=== PATIENT | female | born 1940 | race Caucasian/White ===

== ENCOUNTER 2018-12-18 11:25 | Day surgery (SDC) | payer MEDICARE, OTHER ==
[~2018-12-18 11:25] MED LIST: Propofol 200 MG/20 ML SDV ONE; Sodium Chloride 0.9% 10 ML Syringe FLUSH PRN
[2018-12-18] MEDS: Lactated Ringers 1,000 ML IV SCH (12:22)
--- NOTE | 2018-12-18 12:31 | PCM.HPR ---
H & P Addendum review - H & P Addendum Review Date of Original H & P: 12/09/18 Date Reviewed: 12/18/18 Time Reviewed: 12:30 Patient was Examined: No Changes
[2018-12-18] MEDS ORDERED: Propofol 200 MG/20 ML SDV ONE (12:40)
[2018-12-18] MEDS ORDERED: Lidocaine 2% 100 MG/5 ML Syringe ONE (12:40)
--- NOTE | 2018-12-18 13:11 | PCM.OPNOTE ---
- General Post-Op/Procedure Note Date of Surgery/Procedure: 12/18/18 Operative Procedure(s): EGD adn Colonoscopy Findings: Normal EGD Sig tics Pre Op Diagnosis: GERD; Hx polyps Post-Op Diagnosis: Same Anesthesia Technique: MAC Primary Surgeon: Eddy Flanagan Anesthesia Provider: Rosa East Complications: None Condition: Good
--- NOTE | 2018-12-19 09:22 | OR ---
Date of Procedure: 12/18/2018 PREOPERATIVE DIAGNOSES: 1. Gastroesophageal reflux disease. 2. History of colon polyps. POSTOPERATIVE DIAGNOSES: 1. Normal esophagogastroduodenoscopy. 2. Sigmoid diverticulosis. PROCEDURES: 1. Esophagogastroduodenoscopy. 2. Colonoscopy. ANESTHESIA: IV sedation. DESCRIPTION OF PROCEDURE: The patient was brought to the procedure room where she was placed on her left side and IV sedation administered. Oral bite block was placed and the upper endoscope advanced into the esophagus under direct vision without difficulty. Vocal cords were viewed and were normal. Scope was advanced to the third portion of the duodenum. Duodenum and pylorus were normal. Antrum and body of the stomach were normal. Retroflexion revealed a normal-appearing fundus. Squamocolumnar junction was normal without any evidence of esophagitis, erosions, ulcerations, or strictures. Air was removed from the stomach and the scope withdrawn through the remaining esophagus, which appeared normal. The patient tolerated this portion of the procedure well. Next, colonoscopy was performed after digital rectal exam was done which was normal. Colonoscope was inserted and advanced to the level of the cecum with difficulty getting through a tortuous sigmoid colon. With pressure on the abdomen, I was able to get through this area and then advanced easily to the level of the cecum which was confirmed by identifying the appendiceal lumen and ileocecal valve. The prep was good and surfaces were well visualized. Upon withdrawing the scope, the ascending, transverse, and descending colon were normal in appearance. Sigmoid colon was tortuous with multiple diverticula present. Rectum was normal and retroflexion was normal. Air was removed and the scope withdrawn. The patient tolerated the procedure well and returned to Recovery in stable condition. No further colon screenings are necessary due to the patient's age. REID VAUGHN MD /[id number]
== END 2018-12-18 14:20 | disposition home or self-care (01) ==
LOC: LL.SDS 11:25
PROVIDERS: ATTEND Surgery
DX: K57.30 Diverticulosis of large intestine without perforation or abscess without bleeding (principal); K21.9 Gastro-esophageal reflux disease without esophagitis; K63.89 Other specified diseases of intestine; I10 Essential (primary) hypertension; E03.9 Hypothyroidism, unspecified; M65.30 Trigger finger, unspecified finger; Z86.010 Personal history of colon polyps; Z88.1 Allergy status to other antibiotic agents; Z79.899 Other long term (current) drug therapy
CPT/HCPCS: J2001; J2704; J7120

== ENCOUNTER 2024-11-07 00:51 | Emergency (ER) | payer MEDICARE, OTHER ==
[2024-11-07 01:14] LABS: BASOPHILS ABSOLUTE AUTO 0.03 K/uL (0.00-0.20); BASOPHILS PERCENT AUTO 0.2 % (0.0-2.0); EOSINOPHILS ABSOLUTE AUTO 0.07 K/uL (0.00-0.50); EOSINOPHILS PERCENT AUTO 0.5 % (0.0-5.0); IMMATURE GRAN ABSOLUTE AUTO 0.05 10^3/uL (0.00-0.04); IMMATURE GRAN PERCENT AUTO 0.3 % (0.0-0.4); LYMPHOCYTES ABSOLUTE AUTO 0.99 K/uL (0.50-3.50); LYMPHOCYTES PERCENT AUTO 6.9 % (10.0-50.0); MONOCYTES ABSOLUTE AUTO 0.68 K/uL (0.00-1.00); MONOCYTES PERCENT AUTO 4.8 % (2.0-14.0); NEUTROPHILS ABSOLUTE AUTO 12.47 K/uL (1.40-7.00); NEUTROPHILS PERCENT AUTO 87.3 % (45.0-80.0); PLATELET COUNT,PLT 172 K/uL (150-350); RED BLOOD CELL COUNT 4.02 M/uL (3.77-5.09); RED CELL DISTRIBUTION WIDTH 12.6 % (11.2-14.1); WHITE BLOOD CELL COUNT,WBC 14.3 K/uL (4.0-10.2)
[2024-11-07] MEDS ORDERED: Naloxone 0.4 MG/ML SDV IVPUSH PRN (01:26)
[2024-11-07 01:35] LABS: ALANINE AMINOTRANSFERASE,ALT 27.0 U/L (12-78); ASPARTATE AMNIOTRANSFERASE,AST 29.0 U/L (15-37); BILIRUBIN TOTAL 0.5 mg/dL (0.2-1.0); BLOOD UREA NITROGEN,BUN 16.0 mg/dL (7-18); CARBON DIOXIDE,CO2 28.5 mmol/L (21.0-32.0); CHLORIDE,CL 98.0 mmol/L (98-107); CREATININE 0.86 mg/dL (0.51-1.17); EST CRCL DRUG DOSING (CG) 42.25 mL/min; GLUCOSE RANDOM 141.0 mg/dL (70-99); POTASSIUM,K 3.5 mmol/L (3.5-5.1); PROTEIN TOTAL,TP 7.8 g/dL (6.4-8.2); SODIUM,NA 135.0 mmol/L (136-145)
[2024-11-07 01:36] LABS: ESTIMATED GFR 66.0 mL/min (>=60)
[2024-11-07] MEDS: Ondansetron 4 MG/2 ML SDV IVPUSH ONE ×2 (01:48→03:46)
[2024-11-07] MEDS: Sodium Chloride 0.9% 10 ML Syringe FLUSH PRN (03:47)
== END 2024-11-07 04:00 ==
LOC: LL.ED 00:51
DX: S72.012A Unspecified intracapsular fracture of left femur, initial encounter for closed fracture (principal); I10 Essential (primary) hypertension; E03.9 Hypothyroidism, unspecified; Z79.890 Hormone replacement therapy; Z90.710 Acquired absence of both cervix and uterus; Z90.49 Acquired absence of other specified parts of digestive tract; W19.XXXA Unspecified fall, initial encounter
CPT/HCPCS: 36415; 51702; 80053; 83735; 85025; 96374; 96375; 99284; 99284-25; A9270-GY; J2270; J2405